=== PATIENT | male | born 1950 | race Caucasian/White ===

== ENCOUNTER → 2020-08-19 | Outpatient (CLI) | payer SELFPAY ==
[~2020-08-19] MED LIST: ASPI81TA86 PO; COUM2.5T17 PO; MELO7.5T7 PO; METO50TA7 PO; OMEP1CAP73 PO; PERC5TAB12 PO; SIMV40TA20 PO; TAMS0.4C2 PO; VITA500C3 PO; acetaminophen PO
== END ==
LOC: M LABSMTC 10:25
PROVIDERS: ATTEND Pediatrics
DX: Z20.828 Contact with and (suspected) exposure to other viral communicable diseases (principal)

== ENCOUNTER → 2020-09-21 | Outpatient (CLI) | payer SELFPAY | LOC: M LABSMTC 13:24 | PROVIDERS: ATTEND Pediatrics | DX: Z20.822 Contact with and (suspected) exposure to COVID-19 (principal) ==

== ENCOUNTER → 2021-12-07 | Outpatient (CLI) | payer OTHER | LOC: M SOG 08:25 | PROVIDERS: ATTEND Orthopaedic Surgery | DX: M47.16 Other spondylosis with myelopathy, lumbar region (principal) ==

== ENCOUNTER → 2021-12-11 | Outpatient (REF) | payer MEDICARE ==
[2021-12-11 17:13] LABS: ALBUMIN 3.8 GM/DL (3.2-5.2); ALT/SGPT 29 U/L (12-78); BILIRUBIN,DIRECT 0.1 MG/DL (0.0-0.2); BILIRUBIN,TOTAL 0.4 MG/DL (0.2-1.0); BLOOD UREA NITROGEN 25 MG/DL (7-18); CARBON DIOXIDE LEVEL 30 MEQ/L (21-32); CHLORIDE LEVEL 106 MEQ/L (98-107); GLOMERULAR FILTRATION RATE > 60.0 (>42); GLUCOSE, FASTING 112 MG/DL (70-100); IRON (FE) 72 UG/DL (65-175); MAGNESIUM LEVEL 2.2 MG/DL (1.8-2.4); PHOSPHORUS LEVEL 3.1 MG/DL (2.5-4.9); SODIUM LEVEL 140 MEQ/L (136-145); TOTAL PROTEIN 7.4 GM/DL (6.4-8.2)
[2021-12-11 17:19] LABS: PTH INTACT 89.6 PG/ML (18.5-88.0)
== END ==
LOC: M SFHCRHEU 15:42
PROVIDERS: ATTEND Internal Medicine
DX: M11.20 Other chondrocalcinosis, unspecified site (principal); M79.10 Myalgia, unspecified site; Z79.899 Other long term (current) drug therapy

== ENCOUNTER → 2022-02-06 | Outpatient (CLI) | payer MEDICARE | LOC: M PLAIMG 07:36 | PROVIDERS: ATTEND Orthopaedic Surgery | DX: M51.36 Other intervertebral disc degeneration, lumbar region (principal); M51.37 Other intervertebral disc degeneration, lumbosacral region; M48.061 Spinal stenosis, lumbar region without neurogenic claudication; G95.19 Other vascular myelopathies ==

== ENCOUNTER 2024-06-01 12:48 | Day surgery (SDC) | payer MEDICARE ==
[~2024-06-01] VITALS: Ht 167.6 cm; Wt 87.5 kg
[~2024-06-01 12:48] MED LIST changes: +AMIO200T49 PO; +ASCO500C3 PO; +ECOT81TA5 PO; +ERGO500029 PO; +NS 1,000 ML IV ONE; +OMEP-173 PO; +PRAV10TA3 PO; +XARE20TA PO
[2024-06-01] MEDS ORDERED: fentaNYL 100 MCG/2 ML INJECTION As Ordered ONE (14:47)
[2024-06-01] MEDS ORDERED: propofoL 200 MG/20 ML VIAL As Ordered ONE (14:52)
[2024-06-01] MEDS ORDERED: LIDOCAINE 2% 100MG/5ML SDV (FOR ANES.) As Ordered ONE (14:53)
[2024-06-01] MEDS ORDERED: LIDOCAINE 2% INJ 100 MG/5 ML SYRINGE As Ordered ONE (15:40)
[2024-06-01 16:46] VITALS: TEMP 96.6
[2024-06-01 17:03] VITALS: BP 139/70; O2SAT 97
== END 2024-06-01 17:10 | disposition home or self-care (01) ==
LOC: M OPP 12:48
PROVIDERS: ATTEND Internal Medicine Gastroenterology
DX: D12.5 Benign neoplasm of sigmoid colon (principal); D12.3 Benign neoplasm of transverse colon; D12.4 Benign neoplasm of descending colon; K62.1 Rectal polyp; K57.30 Diverticulosis of large intestine without perforation or abscess without bleeding; R12 Heartburn; I48.91 Unspecified atrial fibrillation; I10 Essential (primary) hypertension; E78.00 Pure hypercholesterolemia, unspecified; G47.30 Sleep apnea, unspecified; N40.0 Benign prostatic hyperplasia without lower urinary tract symptoms; Z79.899 Other long term (current) drug therapy; Z79.01 Long term (current) use of anticoagulants; Z87.891 Personal history of nicotine dependence
CPT/HCPCS: 43235; 45385; 88305; J3010